=== PATIENT | female | born 1965 | race Two or more races ===

== ENCOUNTER 2023-06-06 21:26 | Inpatient (IN) | payer MEDICAID, OTHER ==
[~2023-06-06] VITALS: Ht 157.5 cm; Wt 57.2 kg
[2023-06-06] MEDS: cloNIDine HCL 0.1 MG TAB PO ONE (21:50)
[2023-06-06 22:07] LABS: Base Excess 4.5 mmol/L (-2.0-2.0)
[2023-06-06 22:32] LABS: Basophils # (auto) 0 10 ^3/uL (0-0.2); Basophils % (auto) 0.6 % (0.0-2.0); Eosinophils # (auto) 0.2 10 ^3/uL (0-0.8); Hematocrit 39.4 % (36.0-46.0); Hemoglobin 12.9 g/dL (12.2-16.2); Lymphocytes # (auto) 1.5 10 ^3/uL (0.4-5.4); Lymphocytes % (auto) 24.9 % (10.0-50.0); Mean Corpuscular Hemoglobin 29.5 pg (28.0-32.0); Mean Corpuscular Hgb Conc. 32.8 g/dL (32.0-36.0); Mean Corpuscular Volume 89.9 fL (80.0-100.0); Monocytes # (auto) 0.6 10 ^3/uL (0-1.3); Monocytes % (auto) 10.5 % (0.0-12.0); Neutrophils # (auto) 3.5 10 ^3/uL (1.6-8.6); Nucleated Red Blood Cells % 0.2 %; Red Blood Cells 4.39 10^6/uL (4.0-5.20); Red Cell Distribution Width 13.9 % (11.8-14.3); White Blood Cell 5.8 10^3/uL (4.4-10.8)
[2023-06-06 22:49] LABS: Alanine Aminotransferase 10 U/L (7-40); Albumin 4.5 g/dL (3.2-4.8); Alkaline Phosphatase 124 U/L (46-116); Anion Gap 7 (5-15); Aspartate Aminotransferase 19 U/L (13-40); BUN/Creatinine Ratio 6.4 (10.0-20.0); Bilirubin, Total 0.5 mg/dL (0.2-1.0); Blood Urea Nitrogen 25 mg/dL (9-23); Calcium 9.4 mg/dL (8.5-10.1); Carbon Dioxide 31 mmol/L (20-30); Chloride 101 mmol/L (98-107); Glucose 97 mg/dL (74-106); Potassium 4.2 mmol/L (3.5-5.1); Sodium 139 mmol/L (136-145); Total Protein 6.9 g/dL (5.7-8.2)
[2023-06-06 23:11] LABS: INR 1.07 (0.9-1.15); Partial Thromboplastin Time 28.3 SEC (24.5-34.5); Prothrombin Time 11.2 sec (9.3-11.8)
[2023-06-06 23:45] VITALS: PULSE 67; RESP 13; O2SAT 97
[2023-06-07] VITALS (9 sets, daily range): BP systolic 97–120; BP diastolic 51–69; PULSE 64–80; RESP 16–22; TEMP 97.4–98.4; O2SAT 95–99
[2023-06-07] MEDS ORDERED: ONDANSETRON HCL 4 MG/2 ML VIAL IV PRN (00:15)
[2023-06-07] MEDS ORDERED: DEXTROSE (50%) 50ML SYRG IV PRN (00:15)
[2023-06-07] MEDS ORDERED: ACETAMINOPHEN 325 MG TAB PO PRN (00:15)
[2023-06-07 04:03] LABS: COVID19 ANTIGEN SOFIA FIA NEGATIVE (NEGATIVE); Rapid Influenza A Negative (Negative); Rapid Influenza B Negative (Negative)
[2023-06-07] MEDS: InsuLIN REG 1unit/0.01ml Soln (100units/ml) SC SCH (06:00)
[2023-06-07] MEDS: cloNIDine HCL 0.1 MG TAB PO SCH (06:42)
[2023-06-07] MEDS: ACCU-CHEK COMFORT CURVE STRIP VI SCH (06:44)
[2023-06-07] MEDS: ALBUTEROL SULF 2.5 MG/0.5ML(0.5%) NEB SOLN NEB PRN (09:41)
[2023-06-07] MEDS: SEVELAMER 800 MG TAB PO SCH (09:46)
[2023-06-07] MEDS: FUROSEMIDE 40 MG TAB PO SCH (09:46)
[2023-06-07] MEDS: hydrALAZINE HCL 20 MG/ML VL IV PRN (09:47)
[2023-06-07 11:36] LABS: Basophils # (auto) 0 10 ^3/uL (0-0.2); Basophils % (auto) 0.8 % (0.0-2.0); Eosinophils # (auto) 0.1 10 ^3/uL (0-0.8); Eosinophils % (auto) 2.6 % (0.0-7.0); Hematocrit 36.5 % (36.0-46.0); Lymphocytes % (auto) 18.1 % (10.0-50.0); Mean Corpuscular Hemoglobin 29.2 pg (28.0-32.0); Mean Corpuscular Hgb Conc. 32.8 g/dL (32.0-36.0); Mean Corpuscular Volume 88.9 fL (80.0-100.0); Monocytes # (auto) 0.4 10 ^3/uL (0-1.3); Monocytes % (auto) 7.6 % (0.0-12.0); Neutrophils % (auto) 70.9 % (37.0-80.0); Red Blood Cells 4.11 10^6/uL (4.0-5.20); Red Cell Distribution Width 13.7 % (11.8-14.3); White Blood Cell 5.6 10^3/uL (4.4-10.8)
[2023-06-07] MEDS: LORazepam 2MG/ML-1ML VIAL IV ONE (11:53)
[2023-06-07] MEDS: NIFEdipine ER 30 MG TAB PO ONE (11:54)
[2023-06-07 11:58] LABS: Alanine Aminotransferase 11 U/L (7-40); Albumin 4.3 g/dL (3.2-4.8); Alkaline Phosphatase 117 U/L (46-116); Anion Gap 5 (5-15); Aspartate Aminotransferase 16 U/L (13-40); BUN/Creatinine Ratio 7.5 (10.0-20.0); CRP High Sensitivity 0.09 mg/dL (<1.0); Carbon Dioxide 31 mmol/L (20-30); Chloride 99 mmol/L (98-107); Glucose 236 mg/dL (74-106); LDL Cholesterol 43 mg/dL (< 100); Potassium 4.7 mmol/L (3.5-5.1); Sodium 135 mmol/L (136-145); Triglycerides 135 mg/dL (< 150)
[2023-06-07 11:59] LABS: Bilirubin, Total 0.5 mg/dL (0.2-1.0); Cholesterol 106 mg/dL (< 200); HDL Cholesterol 44 mg/dL (40-59); Total Protein 6.4 g/dL (5.7-8.2)
[2023-06-07 12:02] LABS: Blood Urea Nitrogen 38 mg/dL (9-23)
[2023-06-07 13:19] LABS: Magnesium 2.2 mg/dL (1.6-2.6)
[2023-06-07 20:07] LABS: Urine Bacteria FEW /hpf (None Seen); Urine Blood Negative /uL (Negative); Urine Clarity Clear (Clear); Urine Color Colorless (Yellow); Urine Hyaline Cast FEW /lpf (0 - 2); Urine Protein, UAD 3+ (Negative); Urine Specific Gravity 1.008 (1.001-1.035); Urine Urobilinogen Normal (Negative); Urine WBC 1 /hpf (0 - 5); Urine pH 7.5 (5.0-8.0)
[2023-06-07 20:10] LABS: Amphetamine Screen, Urine Neg (NEGATIVE); Barbiturate Scree,Urine Neg (NEGATIVE); Benzodiazephine Screen, Urine Neg (NEGATIVE); Cocaine Screen, Urine Neg (NEGATIVE)
[2023-06-07 20:11] LABS: Cannabinoid Screen, Urine Neg (NEGATIVE); Opiate Scree,Urine Neg (NEGATIVE); Phencyclidine Screen, Urine Neg (NEGATIVE)
[2023-06-07] MEDS: ATORVASTATIN 20 MG TAB PO SCH (21:47)
[2023-06-07] MEDS ORDERED: ATORVASTATIN 20 MG TAB PO SCH (22:00)
[2023-06-08] VITALS (7 sets, daily range): BP systolic 104–127; BP diastolic 56–74; PULSE 67–79; RESP 16–18; TEMP 36.7; O2SAT 95–98
[2023-06-08 05:07] LABS: Chloride 100 mmol/L (98-107); Potassium 4.7 mmol/L (3.5-5.1); Sodium 136 mmol/L (136-145)
[2023-06-08 05:08] LABS: Anion Gap 5 (5-15); Carbon Dioxide 31 mmol/L (20-30)
[2023-06-08 05:13] LABS: BUN/Creatinine Ratio 8.9 (10.0-20.0); Glucose 93 mg/dL (74-106)
[2023-06-08 05:14] LABS: Blood Urea Nitrogen 51 mg/dL (9-23)
[2023-06-08] MEDS ORDERED: DEXTROSE (50%) 50ML SYRG IV PRN (07:45)
[2023-06-08] MEDS: LORazepam 0.5 MG TAB PO PRN (08:52)
[2023-06-08] MEDS: FLUoxetine HCL 10 MG CAP PO SCH (11:35)
[2023-06-08] MEDS: InsuLIN REG 1unit/0.01ml Soln (100units/ml) SC SCH (11:38)
[2023-06-08] MEDS: ACCU-CHEK COMFORT CURVE STRIP VI SCH (11:38)
[2023-06-08] MEDS ORDERED: SEVE800T PO (14:35)
[2023-06-08] MEDS ORDERED: ATOR20TA50 PO (14:35)
[2023-06-08] MEDS ORDERED: [UNRECOGNIZED DRUG - CODE] PO (14:35)
[2023-06-08] MEDS ORDERED: NIFE1TAB31 PO (14:35)
[2023-06-08] MEDS: NIFEdipine ER 30 MG TAB PO SCH (18:14)
[2023-06-11] MEDS ORDERED: LORA-1121 PO (03:44)
== END 2023-06-08 18:40 | disposition home or self-care (01) | DRG 199 ==
LOC: ER 21:26 → OVERFLOW 06-07 00:36 → CENTRAL 06-07 06:00
PROVIDERS: ADMIT Internal Medicine; ATTEND Internal Medicine
DX: I16.1 Hypertensive emergency (principal); N18.6 End stage renal disease; E11.22 Type 2 diabetes mellitus with diabetic chronic kidney disease; I12.0 Hypertensive chronic kidney disease with stage 5 chronic kidney disease or end stage renal disease; E78.5 Hyperlipidemia, unspecified; F41.0 Panic disorder [episodic paroxysmal anxiety]; Z20.822 Contact with and (suspected) exposure to COVID-19; Z99.2 Dependence on renal dialysis; Z71.3 Dietary counseling and surveillance
CPT/HCPCS: 36415; 36600; 71045; 78582; 80048; 80053; 80061; 80307; 81001; 82805; 82962; 83036; 83605; 83735; 83880; 84443; 84484; 85025; 85379; 85610; 85730; 86141; 87040; 87081; 87426; 87804; 90935; 93005; 93306; 93970; G0378; J1815

== ENCOUNTER 2023-09-12 00:06 | Emergency (ER) | payer MEDICAID ==
[~2023-09-12] VITALS: Ht 157.5 cm; Wt 60.0 kg
[~2023-09-12 00:06] MED LIST: ATOR20TA50 PO; LORA-1121 PO; NIFE1TAB31 PO; SEVE800T7 PO; [UNRECOGNIZED DRUG - CODE] PO
[2023-09-12 02:14] LABS: Basophils # (auto) 0 10 ^3/uL (0-0.2); Basophils % (auto) 0.5 % (0.0-2.0); Eosinophils # (auto) 0.2 10 ^3/uL (0-0.8); Eosinophils % (auto) 2.7 % (0.0-7.0); Hematocrit 36.1 % (36.0-46.0); Lymphocytes % (auto) 13.9 % (10.0-50.0); Mean Corpuscular Hemoglobin 31.2 pg (28.0-32.0); Mean Corpuscular Hgb Conc. 33.2 g/dL (32.0-36.0); Mean Corpuscular Volume 94.1 fL (80.0-100.0); Monocytes # (auto) 0.7 10 ^3/uL (0-1.3); Monocytes % (auto) 9.9 % (0.0-12.0); Neutrophils # (auto) 5.2 10 ^3/uL (1.6-8.6); Red Blood Cells 3.84 10^6/uL (4.0-5.20); Red Cell Distribution Width 13.9 % (11.8-14.3); White Blood Cell 7.1 10^3/uL (4.4-10.8)
[2023-09-12 02:23] LABS: Alanine Aminotransferase 56 U/L (7-40); Albumin 4.4 g/dL (3.2-4.8); Alkaline Phosphatase 152 U/L (46-116); Anion Gap 4 (5-15); Aspartate Aminotransferase 98 U/L (13-40); BUN/Creatinine Ratio 6.9 (10.0-20.0); Bilirubin, Total 0.7 mg/dL (0.2-1.0); Blood Urea Nitrogen 35 mg/dL (9-23); Calcium 9.5 mg/dL (8.7-10.4); Carbon Dioxide 31 mmol/L (20-30); Chloride 103 mmol/L (98-107); Glucose 130 mg/dL (74-106); Lipase 55 U/L (12-53); Potassium 4.4 mmol/L (3.5-5.1); Sodium 138 mmol/L (136-145); Total Protein 7.1 g/dL (5.7-8.2)
[2023-09-12 04:00] VITALS: BP 172/64; PULSE 73; RESP 12; TEMP 97.8; O2SAT 100
[2023-09-12] MEDS: MORPHINE SULFATE 4 MG/ML SYR/VIAL IV ONE (04:38)
[2023-09-12] MEDS: ONDANSETRON HCL 4 MG/2 ML VIAL IV ONE (04:38)
[2023-09-12] MEDS ORDERED: ZOFR4T PO (05:20)
[2023-09-12] MEDS ORDERED: ACET-1304 PO (05:20)
[2023-09-12] MEDS: ONDANSETRON ODT 4 MG TAB PO ONE (06:03)
[2023-09-12] MEDS: ACETAMINOPHEN 500 MG TAB PO ONE (06:03)
== END 2023-09-12 06:10 | disposition home or self-care (01) ==
LOC: ER 00:06
DX: K85.90 Acute pancreatitis without necrosis or infection, unspecified (principal); I12.0 Hypertensive chronic kidney disease with stage 5 chronic kidney disease or end stage renal disease; E11.22 Type 2 diabetes mellitus with diabetic chronic kidney disease; N18.6 End stage renal disease; F41.9 Anxiety disorder, unspecified; F32.9 Major depressive disorder, single episode, unspecified; F17.210 Nicotine dependence, cigarettes, uncomplicated; Z98.890 Other specified postprocedural states; Z79.899 Other long term (current) drug therapy
CPT/HCPCS: 36415; 74176; 80053; 83690; 84484; 85025; 93005; 99284; Q0162

== ENCOUNTER 2023-11-28 15:23 | Emergency (ER) | payer MEDICAID ==
[~2023-11-28] VITALS: Ht 157.5 cm; Wt 56.4 kg
[~2023-11-28 15:23] MED LIST changes: +ACET-1304 PO; +LORA-655 PO; +ZOFR4T PO; +[UNRECOGNIZED DRUG - CODE] PO; -[UNRECOGNIZED DRUG - CODE] PO
[2023-11-28 15:50] VITALS: BP 175/76; PULSE 87; RESP 12; O2SAT 97
[2023-11-28] MEDS ORDERED: ACET-1080 PO (16:07)
[2023-11-28] MEDS ORDERED: CLIN1CAP70 PO (16:07)
[2023-11-28 16:17] VITALS: TEMP 99.3
[2023-11-28] MEDS: cefTRIAXone SOD 1,000 MG VL IM ONE (16:17)
[2023-11-28] MEDS: ACETAMINOPHEN 500 MG TAB PO ONE (16:17)
[2023-11-28 16:30] VITALS: PULSE 82; RESP 16; O2SAT 95
== END 2023-11-28 16:47 | disposition home or self-care (01) ==
LOC: ER 15:23
DX: K02.9 Dental caries, unspecified (principal); E11.22 Type 2 diabetes mellitus with diabetic chronic kidney disease; I13.11 Hypertensive heart and chronic kidney disease without heart failure, with stage 5 chronic kidney disease, or end stage renal disease; N18.6 End stage renal disease; F17.210 Nicotine dependence, cigarettes, uncomplicated
CPT/HCPCS: 96372; 99283; J0696

== ENCOUNTER 2024-07-08 22:30 | Emergency (ER) | payer MEDICAID ==
[~2024-07-08] VITALS: Ht 157.5 cm; Wt 66.4 kg
[~2024-07-08 22:30] MED LIST changes: +ACET-1080 PO; +CLIN1CAP70 PO
[2024-07-08] MEDS: cloNIDine HCL 0.1 MG TAB PO ONE (22:50)
[2024-07-08 23:41] VITALS: BP 114/48; PULSE 73; RESP 18; TEMP 97.9; O2SAT 98
[2024-07-09] MEDS ORDERED: ACET500T58 PO (00:16)
[2024-07-09] MEDS ORDERED: AMOX875T4 PO (00:16)
--- NOTE | 2024-07-09 00:16 | ED.PDOC ---
Eye-HPI HPI Comments 59-year-old female presents to ER with complaints of toothache x2 days. Patient reports that she broke a right lower tooth two days ago while eating hard candy and has since been experiencing pain localized to this region. She rates her current pain a 6/10. Reports that she took Tylenol for pain with slight relief. Patient presents to ER ambulatory on arrival, with steady gait, in no distress. Denies fever, headache, facial swelling or any further symptoms/complaints Chief Complaint: Tooth Pain Time Seen by MD: 22:44 Primary Care Provider: UNKNOWN Reviewed Notes: Nurses Notes, Medications, Allergies Allergies: Coded Allergies: NO KNOWN ALLERGIES (Unverified , 06/06/23) Home Meds Active Scripts Acetaminophen (Acetaminophen) 500 Mg Tab, 500 MG PO Q4HPRN, #30 TAB 0 Refills Prov:FAMILIA JENSEN 07/09/24 Amoxicillin & Pot Clavulanate (Amoxicillin/Potassium Cla) 875 Mg Tab, 1 TAB PO BID for 7 Days, #14 TAB 0 Refills Prov:FAMILIA JENSEN 07/09/24 Acetaminophen (Tylenol 8 Hour Arthritis) 650 Mg Tab, 650 MG PO TID, #30 TAB Prov:LUCA HILL 11/28/23 Clindamycin Hcl (Clindamycin Hcl) 300 Mg Cap, 1 CAP PO TID, #30 CAP Prov:LUCA HILL 11/28/23 Lorazepam (Ativan) 0.5 Mg Tab, 1 TAB PO DAILYP PRN, #5 TAB Prov:JOHAN CHAPARRO 10/30/23 Ondansetron Odt 4MG Tab (ZOFRAN PO) 4 Mg Tb, 4 MG PO TID PRN, #15 TAB ODT TAB-DISSOLVE IN MOUTH, THEN SWALLOW Prov:AMOR FONTENOT MD 09/12/23 Acetaminophen (Tylenol Extra Strength) 500 Mg Tab, 1000 MG PO Q6HP PRN, #30 TAB Prov:AMOR FONTENOT MD 09/12/23 Lorazepam (ATIVAN TABLET) 0.5 Mg Tb, 1 TAB PO TID PRN, #10 TAB Prov:MAYA CONSTANTINO DO 06/11/23 Sevelamer Hydrochloride (Renagel) 800 Mg Tab, 800 MG PO TIDWM for 30 Days, #90 TAB 2 Refills Prov:SKYLER MADSEN [facility] 06/08/23 Nifedipine (Nifedipine Er) 30 Mg Tab, 30 MG PO DAILY for 30 Days, #30 TAB 2 Refills Prov:SKYLER MADSEN [facility] 06/08/23 Fluoxetine HCl (Fluoxetine HCl) 10 Mg Cap, 10 MG PO DAILY for 30 Days, #30 CAP 2 Refills Prov:SKYLER MADSEN [facility] 06/08/23 Atorvastatin Calcium (ATORVASTATIN CALCIUM) 20 Mg Tab, 40 MG PO HS for 30 Days, #60 TAB 2 Refills Prov:SKYLER MADSEN [facility] 06/08/23 Information Source: Patient Mode of Arrival: Ambulatory Past Medical History PAST MEDICAL HISTORY: Anxiety, Depression, DM, ESRD (DIALYSIS T, TH, SAT), HTN UNIVERSITY DEAN History: No Pertinent UNIVERSITY DEAN History Family History Family History: Unknown Social History Smoker: Non-Smoker Alcohol: Denies ETOH Use Drugs: Denies Drug Use Lives In: Home Constitutional: denies: chills, diaphoresis, fatigue, fever, malaise, sweats, weakness, others EENTM: reports: others (As stated in HPI) Respiratory: denies: cough, hemoptysis, orthopnea, SOB at rest, shortness of breath, SOB with excertion, stridor, wheezing, others Cardiovascular: denies: chest pain, dizzy spells, diaphoresis, Dyspnea on exertion, edema, irregular heart beat, left arm pain, lightheadedness, palpitations, PND, syncope, others Gastrointestinal: denies: abdomen distended, abdominal pain, blood streaked bowels, constipated, diarrhea, dysphagia, difficulty swallowing, hematemesis, melena, nausea, poor appetite, poor fluid intake, rectal bleeding, rectal pain, vomiting, others Genitourinary: denies: abnormal vagina bleeding, burning, dyspareunia, dysuria, flank pain, frequency, hematuria, incontinence, pain, , vagina discharge, urgency, others Neurological: denies: dizziness, fainting, headache, left sided numbness, left sided weakness, numbness, paresthesia, pre-existing deficit, right sided numbness, right sided weakness, seizure, speech problems, tingling, tremors, weakness, others Musculoskeletal: denies: back pain, gout, joint pain, joint swelling, muscle pain, muscle stiffness, neck pain, others Integumetry: denies: bruises, change in color, change in hair/nails, dryness, laceration, lesions, lumps, rash, wounds, others Allergic/Immunocompromised: denies: Difficulty Healing, Frequent Infections, Hives, Itching, others Hematologic/Lymphatic: denies: anemia, blood clots, easy bleeding, easy bruising, swollen glands, others Endocrine: denies: excessive hunger, excessive sweating, excessive thirst, excessive urination, flushing, intolerance to cold, intolerance to heat, unexplained weight gain, unexplained weight loss, others Psychiatric: denies: anxiety, bipolar disorder, depression, hopeless, panic disorder, schizophrenia, sleepless, suicidal, others Physical Exam General Appearance: No Apparent Distress HEENT: PERRL/EOMI, Pharynx Normal, Other (Broken right lower tooth #26 noted without bleeding. Several missing teeth also noted with overall very poor dental hygiene appreciated. No facial swelling/skin changes appreciated) Neck: Full Range of Motion, Non-Tender, Normal Respiratory: Chest Non-Tender, Lungs Clear, No Accessory Muscle Use, No Respiratory Distress, Normal Breath Sounds Cardiovascular: No Murmur, No Gallop, Regular Rate/Rhythm Breast Exam: Deferred Gastrointestinal: NOT DONE Genitalia: Deferred Pelvic: Deferred Rectal: Deferred Extremities: Normal capillary refill, Normal range of motion Neurologic: Alert, manager of financial reporting II-XII nml as Tested, No Motor Deficits, Normal Affect, Normal Mood, No Sensory Deficits Cerebellar Function: Normal Reflexes: Normal Skin: Dry, Normal Color, Warm Lymphatic: No Adenopathy Was a procedure done? Was a procedure done?: No Sedation Sedation?: No EENT DIFF Eye: N/A Mouth: Thrush, Other (Dental abscess, Timur's angina) X-Ray, Labs, Meds, VS Vital Signs Date Time Temp Pulse Resp B/P (MAP) Pulse Ox O2 Delivery O2 Flow Rate FiO2 07/08/24 23:41 97.9 62 18 114/48 (70) 98 97.9 07/08/24 23:41 73 18 98 Room Air 07/08/24 22:50 198/92 07/08/24 22:41 97.9 73 18 198/92 (127) 97 97.9 Current Medications Medications (Trade) Dose Ordered Sig/Blake Route Start Time Stop Time Status Last Admin Clonidine HCl (Catapres Tablet) 0.2 mg ONCE ONCE PO 07/08/24 22:45 07/08/24 22:46 DC 07/08/24 22:50 Clonidine 0.2 mg p.o. ordered Rocephin 1 g IM ordered Hurricane spray ordered, patient educated on proper use/dosage Advised to monitor/record blood pressure readings closely at home Advised to continue blood pressure medications as prescribed Advised to follow up with PCP and dentist in 1-2 days Patient alert and oriented x4 prior to discharge. Patient verbalized understanding and agreeable with current plan of care Advised to return to ER immediately if symptoms worsen Time of 1ST Reevaluation: 23:50 Reevaluation 1ST: N/A Patient Education/Counseling: Diagnosis, Treatment, Prognosis, Need For Follow Up Family Education/Counseling: No Family Present Departure 1 Departure Time of Disposition: 00:14 Impression: Primary Impression: Broken tooth Qualified Codes: S02.5XXA - Fracture of tooth (traumatic), initial encounter for closed fracture Disposition: HOME / SELF CARE / HOMELESS Condition: Stable e-Prescriptions Clindamycin Hcl (Clindamycin Hcl) 300 Mg Cap 1 CAP PO TID for 7 Days, #21 CAP 0 Refills Prov: FAMILIA JENSEN 07/09/24 Acetaminophen (Acetaminophen) 500 Mg Tab 500 MG PO Q4HPRN, #30 TAB 0 Refills Prov: FAMILIA JENSEN 07/09/24 Critical Care Note Critical Care Time?: No Stability Stability form required: No Heart Score Heart Score: Heart Score Response (Comments) Value History N/A 0 EKG N/A 0 Age N/A 0 Risk Factors N/A 0 Troponin N/A 0 Total 0 FAMILIA JENSEN Jul 09, 2024 00:16
[2024-07-09] MEDS ORDERED: CLIN1CAP70 PO (00:19)
[2024-07-09] MEDS: BENZOCAINE (DENTAL) 20 % SPRAY 60ML MT ONE (00:26)
[2024-07-09] MEDS: cefTRIAXone SOD 1,000 MG VL IM ONE (00:26)
== END 2024-07-09 00:36 | disposition home or self-care (01) ==
LOC: ER 22:30
DX: S02.5XXA Fracture of tooth (traumatic), initial encounter for closed fracture (principal); I12.0 Hypertensive chronic kidney disease with stage 5 chronic kidney disease or end stage renal disease; E11.22 Type 2 diabetes mellitus with diabetic chronic kidney disease; N18.6 End stage renal disease; F32.A Depression, unspecified; F41.9 Anxiety disorder, unspecified; Z79.899 Other long term (current) drug therapy; Z99.2 Dependence on renal dialysis; X58.XXXA Exposure to other specified factors, initial encounter; Y93.89 Activity, other specified; Y92.89 Other specified places as the place of occurrence of the external cause; Y99.8 Other external cause status
CPT/HCPCS: 96372; 99283; J0696

== ENCOUNTER 2024-10-01 05:06 | Emergency (ER) | payer MEDICAID ==
[~2024-10-01] VITALS: Ht 157.5 cm; Wt 66.3 kg
[~2024-10-01 05:06] MED LIST changes: +ACET500T58 PO
--- NOTE | 2024-10-01 06:22 | ED.PDOC ---
HPI Comments 59 y/o F, with PMHx of DM, ESRD, and HTN presents to the ED for CC of palpitations. Patient states, she has been experiencing palpitations with associated hypertensive blood pressure readings onset, 2229 last night ( 12/17). Patient reports, that she currently receives dialysis every /Th/Sat and is complaint with treatments. Patient denies shortness of breath, chest pain, headache, dizziness, or extremity swelling. No other symptoms or modifying factors present at this time. Chief Complaint: Palpitations Time Seen by MD: 06:20 Primary Care Provider: UNKNOWN Reviewed Notes: Nurses Notes, Medications, Allergies Allergies: Coded Allergies: NO KNOWN ALLERGIES (Unverified , 06/06/23) Home Meds Active Scripts Clindamycin Hcl (Clindamycin Hcl) 300 Mg Cap, 1 CAP PO TID for 7 Days, #21 CAP 0 Refills Prov:FAMILIA JENSEN 07/09/24 Acetaminophen (Acetaminophen) 500 Mg Tab, 500 MG PO Q4HPRN, #30 TAB 0 Refills Prov:FAMILIA JENSEN 07/09/24 Acetaminophen (Tylenol 8 Hour Arthritis) 650 Mg Tab, 650 MG PO TID, #30 TAB Prov:LUCA HILL 11/28/23 Clindamycin Hcl (Clindamycin Hcl) 300 Mg Cap, 1 CAP PO TID, #30 CAP Prov:LUCA HILL 11/28/23 Lorazepam (Ativan) 0.5 Mg Tab, 1 TAB PO DAILYP PRN, #5 TAB Prov:JOHAN CHAPARRO 10/30/23 Ondansetron Odt 4MG Tab (ZOFRAN PO) 4 Mg Tb, 4 MG PO TID PRN, #15 TAB ODT TAB-DISSOLVE IN MOUTH, THEN SWALLOW Prov:AMOR FONTENOT MD 09/12/23 Acetaminophen (Tylenol Extra Strength) 500 Mg Tab, 1000 MG PO Q6HP PRN, #30 TAB Prov:AMOR FONTENOT MD 09/12/23 Lorazepam (ATIVAN TABLET) 0.5 Mg Tb, 1 TAB PO TID PRN, #10 TAB Prov:MAYA CONSTANTINO DO 06/11/23 Sevelamer Hydrochloride (Renagel) 800 Mg Tab, 800 MG PO TIDWM for 30 Days, #90 TAB 2 Refills Prov:SKYLER MADSEN [facility] 06/08/23 Nifedipine (Nifedipine Er) 30 Mg Tab, 30 MG PO DAILY for 30 Days, #30 TAB 2 Refills Prov:SKYLER MADSEN [facility] 06/08/23 Fluoxetine HCl (Fluoxetine HCl) 10 Mg Cap, 10 MG PO DAILY for 30 Days, #30 CAP 2 Refills Prov:SKYLER MADSEN [facility] 06/08/23 Atorvastatin Calcium (ATORVASTATIN CALCIUM) 20 Mg Tab, 40 MG PO HS for 30 Days, #60 TAB 2 Refills Prov:SKYLER MADSEN [facility] 06/08/23 Information Source: Patient Mode of Arrival: EMS Severity: Moderate Timing: Hours Duration: Since onset Prehospital treatment: None Onset: At Rest Cardiac Risk Factors: HTN, Diabetes PE Risk Factors: None History of: None Modifying Factors: Nothing Associated Signs and Symptoms: Palpitations Past Medical History PAST MEDICAL HISTORY: Anxiety, Depression, DM, ESRD, HTN BUSBOY History: No Pertinent BUSBOY History Family History Family History: Unknown Social History Smoker: Non-Smoker Alcohol: Denies ETOH Use Drugs: Denies Drug Use Lives In: Home Constitutional: denies: chills, diaphoresis, fatigue, fever, malaise, sweats, weakness, others EENTM: denies: blurred vision, double vision, ear bleeding, ear discharge, ear drainage, ear pain, ear ringing, eye pain, eye redness, hearing loss, mouth pain, mouth swelling, nasal discharge, nose bleeding, nose congestion, nose pain, photophobia, tearing, throat pain, throat swelling, voice changes, others Respiratory: denies: cough, hemoptysis, orthopnea, SOB at rest, shortness of b reath, SOB with excertion, stridor, wheezing, others Cardiovascular: reports: palpitations; denies: chest pain, dizzy spells, diaphoresis, Dyspnea on exertion, edema, irregular heart beat, left arm pain, lightheadedness, PND, syncope, others Gastrointestinal: denies: abdomen distended, abdominal pain, blood streaked b owels, constipated, diarrhea, dysphagia, difficulty swallowing, hematemesis, melena, nausea, poor appetite, poor fluid intake, rectal bleeding, rectal pain, vomiting, others Genitourinary: denies: abnormal vagina bleeding, burning, dyspareunia, dysuria, flank pain, frequency, hematuria, incontinence, pain, , vagina discharge, urgency, others Neurological: denies: dizziness, fainting, headache, left sided numbness, left sided weakness, numbness, paresthesia, pre-existing deficit, right sided numbness, right sided weakness, seizure, speech problems, tingling, tremors, weakness, others Musculoskeletal: denies: back pain, gout, joint pain, joint swelling, muscle pain, muscle stiffness, neck pain, others Integumetry: denies: bruises, change in color, change in hair/nails, dryness, laceration, lesions, lumps, rash, wounds, others Allergic/Immunocompromised: denies: Difficulty Healing, Frequent Infections, Hives, Itching, others Hematologic/Lymphatic: denies: anemia, blood clots, easy bleeding, easy brui sing, swollen glands, others Endocrine: denies: excessive hunger, excessive sweating, excessive thirst, ex cessive urination, flushing, intolerance to cold, intolerance to heat, unexplained weight gain, unexplained weight loss, others Psychiatric: denies: anxiety, bipolar disorder, depression, hopeless, panic disorder, schizophrenia, sleepless, suicidal, others All Other Systems: Reviewed and Negative Physical Exam General Appearance: No Apparent Distress, Normal HEENT: Normal ENT Inspection, Pharynx Normal Neck: Full Range of Motion, Non-Tender, Normal, Normal Inspection Respiratory: Chest Non-Tender, Lungs Clear, No Accessory Muscle Use, No Respiratory Distress, Normal Breath Sounds Cardiovascular: No Edema, No Murmur, No Gallop, Normal Peripheral Pulses, Regular Rate/Rhythm Breast Exam: Deferred Gastrointestinal: No Organomegaly, Non Tender, No Pulsatile Mass, Normal Bowel Sounds, Soft Genitalia: Deferred Pelvic: Deferred Rectal: Deferred Extremities: No calf tenderness, Normal capillary refill, Normal inspection, Normal range of motion, Non-tender, No pedal edema Musculoskeletal : Apperance: Normal Neurologic: Alert, space buyer II-XII nml as Tested, No Motor Deficits, Normal Affect, Normal Mood, No Sensory Deficits Cerebellar Function: Normal Reflexes: Normal Skin: Dry, Normal Color, Warm Lymphatic: No Adenopathy Was a procedure done? Was a procedure done?: No CP Differential Dx Differential Diagnosis: Anxiety / Panic Attack, Sinus Tachycardia Differential Diagnosis: HTN Essential, HTN Accelerated X-Ray, Labs, Meds, VS Vital Signs Date Time Temp Pulse Resp B/P (MAP) Pulse Ox O2 Delivery O2 Flow Rate FiO2 10/01/24 09:36 97.7 68 16 144/74 (97) 100 97.7 10/01/24 05:06 97.9 81 20 181/79 (113) 94 97.9 Lab Test 10/01/24 07:57 10/01/24 05:52 Range/Units Troponin I High Sensitivity 7 7 </=34 ng/L White Blood Count 6.7 4.4-10.8 10^3/uL Red Blood Count 3.44 L 4.0-5.20 10^6/uL Hemoglobin 10.8 L 12.2-16.2 g/dL Hematocrit 31.5 L 36.0-46.0 % Mean Corpuscular Volume 91.6 80.0-100.0 fL Mean Corpuscular Hemoglobin 31.3 28.0-32.0 pg Mean Corpuscular Hemoglobin Concent 34.1 32.0-36.0 g/dL Red Cell Distribution Width 13.6 11.8-14.3 % Platelet Count 133 L 140-450 10^3/uL Mean Platelet Volume 9.9 6.9-10.8 fL Neutrophils (%) (Auto) 75.8 37.0-80.0 % Lymphocytes (%) (Auto) 13.8 10.0-50.0 % Monocytes (%) (Auto) 6.9 0.0-12.0 % Eosinophils (%) (Auto) 3.2 0.0-7.0 % Basophils (%) (Auto) 0.3 0.0-2.0 % Neutrophils # (Auto) 5.1 1.6-8.6 10 ^3/uL Lymphocytes # (Auto) 0.9 0.4-5.4 10 ^3/uL Monocytes # (Auto) 0.5 0-1.3 10 ^3/uL Eosinophils # (Auto) 0.2 0-0.8 10 ^3/uL Basophils # (Auto) 0 0-0.2 10 ^3/uL Nucleated Red Blood Cells 0.0 % Sodium Level 141 136-145 mmol/L Potassium Level 5.1 3.5-5.1 mmol/L Chloride Level 105 98-107 mmol/L Carbon Dioxide Level 27 20-31 mmol/L Anion Gap 9 5-15 Blood Urea Nitrogen 44 H 9-23 mg/dL Creatinine 5.44 H 0.550-1.02 mg/dL Glomerular Filtration Rate Calc 8 >90 mL/min BUN/Creatinine Ratio 8.1 L 10.0-20.0 Serum Glucose 210 H 74-106 mg/dL Calcium Level 8.8 8.7-10.4 mg/dL Phosphorus Level 3.5 2.4-5.1 mg/dL Magnesium Level 2.2 1.6-2.6 mg/dL [place] [id number] Ph: [phone] DIAGNOSTIC IMAGING Diagnostic Imaging Report : [id number] Signed PATIENT: CONSTANCE HORNE LACCT: [id number] UNIT: [id number] : 1965 LOC: ER ROOM / BED: / AGE / SEX: 59 / F ADM STATUS: REG ER SERVICE 6 ORDERING PHYSICIAN: RAVEN SINCLAIR MD PROCEDURE(s): CXRP - CHEST PORTABLE REASON: palpitations ORDER NUMBER(s): [id number], ACCESSION NUMBER(s): [id number] CHEST RADIOGRAPH Indication: palpitations Technique: Single frontal view of the chest was obtained COMPARISON: XY CHEST XRAY 1 VIEW on DOS: 10/29/23, XY CHEST PORTABLE on DOS: 06/06/23 FINDINGS: Lines and Tubes: None Lungs: Clear Pleura: No effusion. No pneumothorax. Cardiomediastinal contours: Unremarkable Bones: Unremarkable IMPRESSION: No acute disease. ATED BY: HOWIE GOODMAN MD DICTATED DATE/TIME: 10/01/24845 SIGNED BY: HOWIE GOODMAN MD SIGNED DATE/TIME: 10/01/24845 CC: Time of 1ST Reevaluation: 06:50 Reevaluation 1ST: Unchanged Patient Education/Counseling: Diagnosis, Treatment Family Education/Counseling: No Family Present SEPSIS Sepsis Screen Date sepsis recognized/suspect: Oct 01, 2024 Time Sepsis recognized/suspect: 0506 Recent Procedure: No On Antibiotic Therapy: No Respiratory Rate >20: No Heart Rate >90: No Temp<36 C (96.8 F) or >38.3 C: No SBP <90 or MAP <65 mmHG: No New Acute Mental Status Change: No Is the patient on CPAP, BIPAP,: No Physician Orders Electrocardigram (10/01/24 05:41) Chest Portable (10/01/24 07:47) Troponin-I Hs (10/01/24 10:47) Vital Signs Date Time Temp Pulse Resp B/P (MAP) Pulse Ox O2 Delivery O2 Flow Rate FiO2 10/01/24 09:36 97.7 68 16 144/74 (97) 100 97.7 10/01/24 05:06 97.9 81 20 181/79 (113) 94 97.9 Laboratory Tests Test 10/01/24 05:52 White Blood Count 6.7 10^3/uL (4.4-10.8) Departure 1 Departure Time of Disposition: 09:38 (Patient presented with chest pain that was concerning for possible STEMI, ACS, PE, Pneumonia, Muscle Strain, COPD, Dissection. Data: 1. I ordered and reviewed the result of at least 3 labs including a CBC, BMP, and Troponin. 2. I independently interpreted the following tests: EKG which shows normal sinus rhythm and Chest X-ray which shows a benign chest.Risk:This patient presented with a high risk of morbidity due to further diagnostic testing or treatment and may suffer from an acute cardiac or respiratory disorder. After review of all the data patient is unlikely to have a pe , dissection, and is low risk for acs. Patient is stable at this time.Workup so far is benign and patient will be discharged with outpatient followup. ) Impression: Primary Impression: Palpitations Disposition: HOME / SELF CARE / HOMELESS Condition: Stable Additional Instructions: You presented today with palpitations. Your workup today was benign including labs, troponin, EKG, chest x-ray. Your pain may be from musculoskeletal strain, acid reflux, anxiety, or many other factors. It is important to follow up with your regular doctor within 1 week. If your symptoms worsen or you have any other concerns please return to the emergency room. Discharged With: Self Critical Care Note Critical Care Time?: No Stability Stability form required: No Heart Score Heart Score: Heart Score Response (Comments) Value History Moderate Suspicious 1 EKG N/A 0 Age 45-64 1 Risk Factors 1 or 2 risk factors 1 Troponin N/A 0 Total 3 I personally scribed for RAVEN SINCLAIR MD ([email or web address]) on 10/01/24 at 06:22. Electronically submitted by Yamile Montana ([email or web address]). I personally scribed for RAVEN SINCLAIR MD ([email or web address]) on 10/01/24 at 09:02. Electronically submitted by Yamile Montana ([email or web address]). RAVEN SINCLAIR MD Oct 01, 2024 06:22
[2024-10-01 06:25] LABS: Hematocrit 31.5 % (36.0-46.0); Hemoglobin 10.8 g/dL (12.2-16.2); Mean Corpuscular Hemoglobin 31.3 pg (28.0-32.0); Mean Corpuscular Volume 91.6 fL (80.0-100.0); Nucleated Red Blood Cells % 0.0 %
[2024-10-01 06:33] LABS: Chloride 105 mmol/L (98-107); Sodium 141 mmol/L (136-145)
[2024-10-01 06:34] LABS: Anion Gap 9 (5-15); Carbon Dioxide 27 mmol/L (20-31)
[2024-10-01 06:35] LABS: Calcium 8.8 mg/dL (8.7-10.4)
[2024-10-01 06:39] LABS: BUN/Creatinine Ratio 8.1 (10.0-20.0)
[2024-10-01 06:44] LABS: Blood Urea Nitrogen 44 mg/dL (9-23); Glucose 210 mg/dL (74-106); Potassium 5.1 mmol/L (3.5-5.1)
[2024-10-01 08:43] LABS: Magnesium 2.2 mg/dL (1.6-2.6)
--- NOTE | 2024-10-01 08:48 | DVH ---
CHEST RADIOGRAPH Indication: palpitations Technique: Single frontal view of the chest was obtained COMPARISON: XY CHEST XRAY 1 VIEW on DOS: 10/29/23, XY CHEST PORTABLE on DOS: 06/06/23 FINDINGS: Lines and Tubes: None Lungs: Clear Pleura: No effusion. No pneumothorax. Cardiomediastinal contours: Unremarkable Bones: Unremarkable IMPRESSION: No acute disease.
[2024-10-01 09:36] VITALS: BP 144/74; PULSE 68; RESP 16; TEMP 97.7; O2SAT 100
--- NOTE | 2024-10-02 07:12 | ECG ---
[facility] Test Date: 2024-10-01 Test Time: 05:41:34 Pat Name: CONSTANCE HORNE Department: ER Room: Gender: F Director Mba: EO : 1965 Requested By: JEFF CASTELLANOS Order Number: [id number] Reading MD: Measurements Intervals [place] Rate: 75 P: 39 TX: 175 QRS: -44 QRSD: 92 T: 62 QT: 427 QTc: 477 Interpretive Statements Sinus rhythm Probable left ventricular hypertrophy Anterior Q waves, possibly due to LVH Please click the below link to view image of tracing.
== END 2024-10-01 09:48 | disposition home or self-care (01) ==
LOC: ER 05:06
DX: R00.2 Palpitations (principal); F41.9 Anxiety disorder, unspecified; F32.A Depression, unspecified; E11.22 Type 2 diabetes mellitus with diabetic chronic kidney disease; N18.6 End stage renal disease; I12.0 Hypertensive chronic kidney disease with stage 5 chronic kidney disease or end stage renal disease; Z99.2 Dependence on renal dialysis; Z79.899 Other long term (current) drug therapy
CPT/HCPCS: 36415; 71045; 80048; 83735; 84100; 84484; 85025; 93005

== ENCOUNTER 2024-11-25 19:39 | Emergency (ER) | payer MEDICAID ==
[~2024-11-25] VITALS: Ht 157.5 cm; Wt 62.3 kg
[2024-11-25 19:44] VITALS: BP 185/77; PULSE 77; RESP 18; TEMP 99.1; O2SAT 96
--- NOTE | 2024-11-25 20:28 | DVH ---
CHEST RADIOGRAPH Indication: SOB Technique: Single frontal view of the chest was obtained Comparison: XY CHEST PORTABLE on DOS: 10/01/24, XY CHEST XRAY 1 VIEW on DOS: 10/29/23, XY CHEST PORTABLE on DOS: 06/06/23 FINDINGS: Lines and Tubes: None Lungs: No focal consolidation. Pleura: No effusion. No pneumothorax. Cardiomediastinal contours: Unremarkable Bones: No acute osseous abnormality. IMPRESSION: 1. No acute cardiopulmonary disease.
[2024-11-25 20:34] LABS: Hematocrit 31.2 % (36.0-46.0); Hemoglobin 10.6 g/dL (12.2-16.2); Mean Corpuscular Hemoglobin 30.8 pg (28.0-32.0); Mean Corpuscular Volume 90.5 fL (80.0-100.0); Nucleated Red Blood Cells % 0.0 %
[2024-11-25 20:41] LABS: Alanine Aminotransferase 15 U/L (7-40); Albumin 4.3 g/dL (3.2-4.8); Anion Gap 8 (5-15); BUN/Creatinine Ratio 6.1 (10.0-20.0); Bilirubin, Total 0.6 mg/dL (0.2-1.0); Calcium 8.9 mg/dL (8.7-10.4); Carbon Dioxide 31 mmol/L (20-31); Chloride 106 mmol/L (98-107); Magnesium 2.3 mg/dL (1.6-2.6); Potassium 4.8 mmol/L (3.5-5.1); Total Protein 6.7 g/dL (5.7-8.2)
--- NOTE | 2024-11-25 20:51 | ED.PDOC ---
SOB-HPI HPI Comments 59 year old female presents to the ED with a chief complaint of shortness of breath onset today around 15:00. Patient was laying down, when she began experiencing shortness of breath with epigastric pain. She noticed pain and shortness of breath worsens with walking. PMHx CVA, anxiety, depression, DM, ESRD, HTN. Denies dizziness, nausea, vomiting, diarrhea, headache, fever, chills. No other symptoms or modifying factors present at this time. Chief Complaint: Shortness of Breath Time Seen by MD: 20:30 Primary Care Provider: UNKNOWN Reviewed notes: Medications, Allergies Information Source: Patient Mode of Arrival: Ambulatory Severity: Moderate Timing: Hours Duration: Since onset Context: At Rest PE Risk Factors: None History of: None Prehospital treatment: None Modifying Factors: Nothing Associated Signs and Symptoms: Other Past Medical History PAST MEDICAL HISTORY: Anxiety, CVA, Depression, DM, ESRD, HTN Surgical History: Denies all surgeries PROFESSIONAL SERVICES SPECIALIST History: No Pertinent PROFESSIONAL SERVICES SPECIALIST History Family History Family History: Unknown Social History Smoker: Non-Smoker Alcohol: Denies ETOH Use Drugs: Denies Drug Use Lives In: Home Constitutional: denies: chills, diaphoresis, fatigue, fever, malaise, sweats, weakness, others EENTM: denies: blurred vision, double vision, ear bleeding, ear discharge, ear drainage, ear pain, ear ringing, eye pain, eye redness, hearing loss, mouth pain, mouth swelling, nasal discharge, nose bleeding, nose congestion, nose pain, photophobia, tearing, throat pain, throat swelling, voice changes, others Respiratory: reports: shortness of breath; denies: cough, hemoptysis, orthopnea, SOB at rest, SOB with excertion, stridor, wheezing, others Cardiovascular: denies: chest pain, dizzy spells, diaphoresis, Dyspnea on exertion, edema, irregular heart beat, left arm pain, lightheadedness, palpitations, PND, syncope, others Gastrointestinal: reports: abdominal pain; denies: abdomen distended, blood streaked bowels, constipated, diarrhea, dysphagia, difficulty swallowing, hematemesis, melena, nausea, poor appetite, poor fluid intake, rectal bleeding, rectal pain, vomiting, others Genitourinary: denies: abnormal vagina bleeding, burning, dyspareunia, dysuria, flank pain, frequency, hematuria, incontinence, pain, , vagina discharge, urgency, others Neurological: denies: dizziness, fainting, headache, left sided numbness, left sided weakness, numbness, paresthesia, pre-existing deficit, right sided numbness, right sided weakness, seizure, speech problems, tingling, tremors, weakness, others Musculoskeletal: denies: back pain, gout, joint pain, joint swelling, muscle pain, muscle stiffness, neck pain, others Integumetry: denies: bruises, change in color, change in hair/nails, dryness, laceration, lesions, lumps, rash, wounds, others Allergic/Immunocompromised: denies: Difficulty Healing, Frequent Infections, Hives, Itching, others Hematologic/Lymphatic: denies: anemia, blood clots, easy bleeding, easy bruising, swollen glands, others Endocrine: denies: excessive hunger, excessive sweating, excessive thirst, excessive urination, flushing, intolerance to cold, intolerance to heat, unexplained weight gain, unexplained weight loss, others Psychiatric: denies: anxiety, bipolar disorder, depression, hopeless, panic disorder, schizophrenia, sleepless, suicidal, others All Other Systems: Reviewed and Negative Physical Exam General Appearance: No Apparent Distress, Normal HEENT: Normal ENT Inspection, Pharynx Normal, TMs Normal Neck: Full Range of Motion, Non-Tender, Normal, Normal Inspection Respiratory: Chest Non-Tender, Lungs Clear, No Accessory Muscle Use, No Respiratory Distress, Normal Breath Sounds Cardiovascular: No Edema, No JVD, No Murmur, No Gallop, Normal Peripheral Pulses, Regular Rate/Rhythm Breast Exam: Deferred Gastrointestinal: No Organomegaly, Non Tender, No Pulsatile Mass, Normal Bowel Sounds, Soft Genitalia: Deferred Pelvic: Deferred Rectal: Deferred Extremities: No calf tenderness, Normal capillary refill, Normal inspection, Normal range of motion, Non-tender, No pedal edema Musculoskeletal : Apperance: Normal Neurologic: Alert, assistant analyst II-XII nml as Tested, No Motor Deficits, Normal Affect, Normal Mood, No Sensory Deficits Cerebellar Function: Normal Reflexes: Normal Skin: Dry, Normal Color, Warm Lymphatic: No Adenopathy Was a procedure done? Was a procedure done?: No Differential Dx Differential Diagnosis: Asthma, Bronchitis, CHF, COPD, Pneumonia, Pneumothorax, Pulmonary Embolism, Respiratory Distress, URI, Other X-Ray, Labs, Meds, VS Vital Signs Date Time Temp Pulse Resp B/P (MAP) Pulse Ox O2 Delivery O2 Flow Rate FiO2 11/25/24 19:44 99.1 77 18 185/77 96 99.1 Lab Test 11/25/24 20:09 Range/Units White Blood Count 6.4 4.4-10.8 10^3/uL Red Blood Count 3.45 L 4.0-5.20 10^6/uL Hemoglobin 10.6 L 12.2-16.2 g/dL Hematocrit 31.2 L 36.0-46.0 % Mean Corpuscular Volume 90.5 80.0-100.0 fL Mean Corpuscular Hemoglobin 30.8 28.0-32.0 pg Mean Corpuscular Hemoglobin Concent 34.1 32.0-36.0 g/dL Red Cell Distribution Width 13.0 11.8-14.3 % Platelet Count 164 140-450 10^3/uL Mean Platelet Volume 9.4 6.9-10.8 fL Neutrophils (%) (Auto) 73.3 37.0-80.0 % Lymphocytes (%) (Auto) 16.4 10.0-50.0 % Monocytes (%) (Auto) 8.2 0.0-12.0 % Eosinophils (%) (Auto) 1.8 0.0-7.0 % Basophils (%) (Auto) 0.3 0.0-2.0 % Neutrophils # (Auto) 4.7 1.6-8.6 10 ^3/uL Lymphocytes # (Auto) 1.0 0.4-5.4 10 ^3/uL Monocytes # (Auto) 0.5 0-1.3 10 ^3/uL Eosinophils # (Auto) 0.1 0-0.8 10 ^3/uL Basophils # (Auto) 0 0-0.2 10 ^3/uL Nucleated Red Blood Cells 0.0 % Sodium Level 145 136-145 mmol/L Potassium Level 4.8 3.5-5.1 mmol/L Chloride Level 106 98-107 mmol/L Carbon Dioxide Level 31 20-31 mmol/L Anion Gap 8 5-15 Blood Urea Nitrogen 29 H 9-23 mg/dL Creatinine 4.79 H 0.550-1.02 mg/dL Glomerular Filtration Rate Calc 10 >90 mL/min BUN/Creatinine Ratio 6.1 L 10.0-20.0 Serum Glucose 66 L 74-106 mg/dL Calcium Level 8.9 8.7-10.4 mg/dL Magnesium Level 2.3 1.6-2.6 mg/dL Total Bilirubin 0.6 0.2-1.0 mg/dL Aspartate Amino Transferase (AST) 16 13-40 U/L Alanine Aminotransferase (ALT) 15 7-40 U/L Alkaline Phosphatase 187 H 46-116 U/L Troponin I High Sensitivity 11 </=34 ng/L B-Type Natriuretic Peptide 283.16 0-100 pg/mL Total Protein 6.7 5.7-8.2 g/dL Albumin 4.3 3.2-4.8 g/dL Lipase 42 12-53 U/L [place] [id number] Ph: [phone] DIAGNOSTIC IMAGING Diagnostic Imaging Report : [id number] Signed PATIENT: CONSTANCE HORNE LACCT: [id number] UNIT: [id number] : 1965 LOC: ER ROOM / BED: / AGE / SEX: 59 / F ADM STATUS: REG ER SERVICE 00 ORDERING PHYSICIAN: RAFAT PITTS MD PROCEDURE(s): CXR1 - CHEST XRAY 1 VIEW REASON: SOB ORDER NUMBER(s): [id number], ACCESSION NUMBER(s): [id number] CHEST RADIOGRAPH Indication: SOB Technique: Single frontal view of the chest was obtained Comparison: XY CHEST PORTABLE on DOS: 10/01/24, XY CHEST XRAY 1 VIEW on DOS: 10/29/23, XY CHEST PORTABLE on DOS: 06/06/23 FINDINGS: Lines and Tubes: None Lungs: No focal consolidation. Pleura: No effusion. No pneumothorax. Cardiomediastinal contours: Unremarkable Bones: No acute osseous abnormality. IMPRESSION: 1. No acute cardiopulmonary disease. ATED BY: PRANAY JOHNSON Jr., DO DICTATED DATE/TIME: 11/25/242025 SIGNED BY: PRANAY JOHNSON Jr., DO SIGNED DATE/TIME: 11/25/242025 CC: Time of 1ST Reevaluation: 21:00 Reevaluation 1ST: Unchanged Patient Education/Counseling: Diagnosis, Treatment, Prognosis Family Education/Counseling: No Family Present SEPSIS Sepsis Screen Date sepsis recognized/suspect: Nov 25, 2024 Time Sepsis recognized/suspect: 1943 Recent Procedure: No On Antibiotic Therapy: No Respiratory Rate >20: No Heart Rate >90: No Temp<36 C (96.8 F) or >38.3 C: No SBP <90 or MAP <65 mmHG: No New Acute Mental Status Change: No Is the patient on CPAP, BIPAP,: No Physician Orders Electrocardigram (11/25/24 20:01) Chest Xray 1 View (11/25/24 20:01) Vital Signs Date Time Temp Pulse Resp B/P (MAP) Pulse Ox O2 Delivery O2 Flow Rate FiO2 11/25/24 19:44 99.1 77 18 185/77 96 99.1 Laboratory Tests Test 11/25/24 20:09 White Blood Count 6.4 10^3/uL (4.4-10.8) Departure 1 Departure Time of Disposition: 23:00 Impression: Primary Impression: End stage renal failure on dialysis Additional Impression: Dyspnea Disposition: 01 HOME / SELF CARE / HOMELESS Condition: Stable e-Prescriptions Gabapentin (Once-Daily) (Gabapentin) 300 Mg Tab 300 MG PO Q6HP PRN, #60 TAB Prov: RAFAT PITTS MD 11/25/24 Discharged With: Self Critical Care Note Critical Care Time?: No Stability Stability form required: No Heart Score Heart Score: Heart Score Response (Comments) Value History Slightly Suspicious 0 EKG Repolarization Disturb 1 Age 45-64 1 Risk Factors 1 or 2 risk factors 1 Troponin Normal limit 0 Total 3 I personally scribed for RAFAT PITTS MD ([email or web address]) on 11/25/24 at 20:51. Electronically submitted by Carole Tanner ([email or web address]). I personally scribed for RAFAT PITTS MD ([email or web address]) on 11/25/24 at 20:52. Electronically submitted by Carole Tanner ([email or web address]). RAFAT PITTS MD Nov 25, 2024 20:51
[2024-11-25 21:14] LABS: Alkaline Phosphatase 187 U/L (46-116); Blood Urea Nitrogen 29 mg/dL (9-23); Glucose 66 mg/dL (74-106); Sodium 145 mmol/L (136-145)
[2024-11-25] MEDS ORDERED: GABA300T4 PO (22:55)
[2024-11-25] MEDS ORDERED: HYDROcodone-ACET 10/325MG TAB PO ONE (23:00)
== END 2024-11-26 04:06 | disposition home or self-care (01) ==
LOC: ER 19:39
DX: I12.0 Hypertensive chronic kidney disease with stage 5 chronic kidney disease or end stage renal disease (principal); E11.22 Type 2 diabetes mellitus with diabetic chronic kidney disease; N18.6 End stage renal disease; R06.00 Dyspnea, unspecified; Z99.2 Dependence on renal dialysis; Z79.899 Other long term (current) drug therapy
CPT/HCPCS: 36415; 71045; 80053; 83690; 83735; 83880; 84484; 85025